=== PATIENT | male | born 1970 | race Caucasian/White ===

== ENCOUNTER 2019-06-27 12:57 | Emergency (ER) | payer BC, OTHER ==
[2019-06-27 13:03] VITALS: BP 132/83; PULSE 85; TEMP 98.4; BMI 27.0
[2019-06-27] MEDS ORDERED: RABIES VACCINE (PCEC)/PF 2.5 UNIT/VIAL IM ONE ×3 (13:30→14:01)
[2019-06-27] MEDS ORDERED: RABIES IMMUNE GLOBULIN 300 UNITS/1 ML VIAL IM ONE (13:30)
[2019-06-27] MEDS ORDERED: RABIES IMMUNE GLOBULIN 300 UNITS/1 ML VIAL ONE (13:52)
--- NOTE | 2019-06-27 13:53 | PDOC ---
History of Present Illness - General Chief Complaint: Bite Stated Complaint: DOG BITE Time Seen by Provider: 06/27/19 13:17 - History of Present Illness Initial Comments: 06/27/19 13:45 49 y/o M w/o CM current on tetanus presents for evaluation after dog bite 1 hour prior to arrival. Pt does not know the animal nor the visitor services assistant, he is unable to contact the visitor services assistant and he is unable to prove the vaccination status of the animal. Past History - Past Medical History Allergies/Adverse Reactions: Allergies Allergy/AdvReac Type Severity Reaction Status Date / Time No Known Allergies Allergy Verified 06/27/19 13:03 Home Medications: Ambulatory Orders Amox-Tr/K Cl [Augmentin - 875Mg Tablet] 1 tab PO BID #20 tablet 06/27/19 - Psycho Social/Smoking Cessation Hx Smoking History: Never smoked Have you smoked in the past 12 months: No Information on smoking cessation initiated: No Hx Alcohol Use: No Drug/Substance Use Hx: No Review of Systems - Review of Systems Integumentary: Yes: See HPI *Physical Exam - Vital Signs Last Vital Signs Temp Pulse Resp BP Pulse Ox 98.4 F 85 18 132/83 99 06/27/19 13:00 06/27/19 13:00 06/27/19 13:00 06/27/19 13:00 06/27/19 13:00 - Physical Exam Comments: 06/27/19 13:47 There is a small puncture wound on the superior lateral aspect of the left thigh There are no gross sensory or motor deficits NVID Medical Decision Making - Medical Decision Making 06/27/19 13:47 Augmentin sent to pharmacy Rabies series started. Discharge - Discharge Information Problems reviewed: Yes Clinical Impression/Diagnosis: Dog bite of extremity Condition: Stable - Additional Discharge Information Prescriptions: Amox-Tr/K Cl [Augmentin - 875Mg Tablet] 1 tab PO BID #20 tablet - Follow up/Referral Referrals: Christopher Calixto MD [Staff Physician] - - Patient Discharge Instructions Patient Printed Discharge Instructions: DI for Animal Bites Additional Instructions: Please return to the emergency room on the following days to complete the vaccination process. Failure to do so may result in . Day 3 06/30/19 Day 7 07/04/19 Day 14 07/11/14 Please take the antibiotics as directed, finish the entire course, and return to the emergency room sooner than the above schedule should problems develop. - Post Discharge Activity
== END 2019-06-27 14:54 | disposition home or self-care (01) ==
LOC: JERFT 12:57
PROC: 3E0234Z Introduction of Serum, Toxoid and Vaccine into Muscle, Percutaneous Approach (ICD-10-PCS; principal; 2019-06-27)
PROC: 3E0234Z Introduction of Serum, Toxoid and Vaccine into Muscle, Percutaneous Approach (ICD-10-PCS; 2019-06-27)
DX: S71.152A Open bite, left thigh, initial encounter (principal); W54.0XXA Bitten by dog, initial encounter; Y93.89 Activity, other specified; Y92.89 Other specified places as the place of occurrence of the external cause; Y99.8 Other external cause status
CPT/HCPCS: 90375; 90675; 99281-25

== ENCOUNTER 2019-06-30 17:00 | Emergency (ER) | payer BC, OTHER ==
[2019-06-30 17:18] VITALS: BP 123/81; PULSE 53; TEMP 98.3; BMI 27.0
[2019-06-30] MEDS ORDERED: RABIES VACCINE (PCEC)/PF 2.5 UNIT/VIAL IM ONE ×2 (17:48→18:33)
--- NOTE | 2019-06-30 18:42 | PDOC ---
History of Present Illness - General Chief Complaint: Revisit,Rabies Injection Stated Complaint: FOLLOW UP Time Seen by Provider: 06/30/19 17:32 - History of Present Illness Initial Comments: 06/30/19 18:41 49 y/o M presents for continuation of rabies vaccination he has no symptoms since his initial visit and he is on augmentin. Past History - Past Medical History Allergies/Adverse Reactions: Allergies Allergy/AdvReac Type Severity Reaction Status Date / Time No Known Allergies Allergy Verified 06/30/19 17:18 Home Medications: Ambulatory Orders Amox-Tr/K Cl [Augmentin - 875Mg Tablet] 1 tab PO BID #20 tablet 06/27/19 COPD: No Other medical history: DENIES - Immunization History Immunization Up to Date: No - Psycho Social/Smoking Cessation Hx Smoking History: Never smoked Have you smoked in the past 12 months: No Information on smoking cessation initiated: No Hx Alcohol Use: No Drug/Substance Use Hx: No Review of Systems - Review of Systems Constitutional: No: Fever *Physical Exam - Vital Signs Last Vital Signs Temp Pulse Resp BP Pulse Ox 98.3 F 53 L 17 123/81 99 06/30/19 17:13 06/30/19 17:13 06/30/19 17:13 06/30/19 17:13 06/30/19 17:13 - Physical Exam General Appearance: Yes: Nourished, Appropriately Dressed. No: Apparent Distress HEENT: positive: Normal ENT Inspection, Normal Voice, Symmetrical Neck: positive: Trachea midline, Supple Respiratory/Chest: negative: Respiratory Distress Extremity: positive: Normal Inspection, Normal Range of Motion Integumentary: positive: Normal Color, Dry, Warm Neurologic: positive: Fully Oriented ED Treatment Course - Medications Given in the ED: ED Medications Discontinued Medications Generic Name Dose Route Start Last Admin Trade Name Freq PRN Reason Stop Dose Admin Rabies Vaccine 2.5 unit 06/30/19 17:48 06/30/19 18:34 Rabavert Rabies Vaccine IM 06/30/19 17:49 2.5 unit .ONCE ONE Administration Medical Decision Making - Medical Decision Making 06/30/19 18:39 Pt taking the antibiotics and has had no sequele from the dog bite to date. Discharge - Discharge Information Problems reviewed: Yes Clinical Impression/Diagnosis: Need for rabies vaccination Condition: Stable Disposition: HOME - Admission No - Follow up/Referral - Patient Discharge Instructions Additional Instructions: Please continue the antibiotics and return to the emergency room on the following dates for the completion of your rabies series. Sooner if problems develop 07/04/19 07/11/19 - Post Discharge Activity
== END 2019-06-30 18:46 | disposition home or self-care (01) ==
LOC: JERFT 17:00
PROC: 3E0234Z Introduction of Serum, Toxoid and Vaccine into Muscle, Percutaneous Approach (ICD-10-PCS; principal; 2019-06-30)
DX: Z23 Encounter for immunization (principal); Z20.3 Contact with and (suspected) exposure to rabies
CPT/HCPCS: 90675; 99281-25

== ENCOUNTER 2019-07-04 22:06 | Emergency (ER) | payer BC, OTHER ==
[2019-07-04 22:17] VITALS: BP 133/95; PULSE 75; TEMP 98; BMI 30.4
[2019-07-04] MEDS ORDERED: RABIES VACCINE (PCEC)/PF 2.5 UNIT/VIAL IM ONE ×2 (22:26→22:37)
--- NOTE | 2019-07-04 22:34 | PDOC ---
History of Present Illness - General Chief Complaint: Bite Stated Complaint: follow up Time Seen by Provider: 07/04/19 22:30 Past History - Past Medical History Allergies/Adverse Reactions: Allergies Allergy/AdvReac Type Severity Reaction Status Date / Time No Known Allergies Allergy Verified 06/30/19 17:18 Home Medications: Ambulatory Orders Amox-Tr/K Cl [Augmentin - 875Mg Tablet] 1 tab PO BID #20 tablet 06/27/19 COPD: No - Immunization History Immunization Up to Date: No - Psycho Social/Smoking Cessation Hx Smoking History: Never smoked Have you smoked in the past 12 months: No Hx Alcohol Use: No Drug/Substance Use Hx: No *Physical Exam - Vital Signs Last Vital Signs Temp Pulse Resp BP Pulse Ox 98 F 75 20 133/95 99 07/04/19 22:15 07/04/19 22:15 07/04/19 22:15 07/04/19 22:15 07/04/19 22:15 Discharge - Discharge Information Clinical Impression/Diagnosis: Need for rabies vaccination Condition: Stable Disposition: HOME - Admission No - Follow up/Referral - Patient Discharge Instructions Additional Instructions: Please return on 07/11/19 for your last rabies vaccination Return to the ER sooner for any new or concerning symptoms - Post Discharge Activity
== END 2019-07-04 22:40 | disposition home or self-care (01) ==
LOC: JER 22:06
PROC: 3E0234Z Introduction of Serum, Toxoid and Vaccine into Muscle, Percutaneous Approach (ICD-10-PCS; principal; 2019-07-04)
DX: Z20.3 Contact with and (suspected) exposure to rabies (principal); W54.0XXD Bitten by dog, subsequent encounter
CPT/HCPCS: 90675; 99281-25